=== PATIENT | male | born 1975 | race Caucasian/White ===

== ENCOUNTER → 2016-05-14 | Outpatient (CLI) | payer OTHER ==
--- NOTE | 2016-05-14 11:59 | EKG REPORT ---
SEVERITY:- ABNORMAL ECG - SINUS RHYTHM LEFT VENTRICULAR HYPERTROPHY BORDERLINE T ABNORMALITIES, INFERIOR LEADS : Confirmed by: Canelo Keane 14-May-2016 11:58:56
== END ==
LOC: OD 10:19
PROVIDERS: ATTEND Family Medicine
DX: R00.0 Tachycardia, unspecified (principal)
CPT/HCPCS: 93005; 93010

== ENCOUNTER → 2016-05-14 | Outpatient (CLI) | payer OTHER | LOC: OD 10:25 | PROVIDERS: ATTEND Family Medicine | DX: R00.0 Tachycardia, unspecified (principal) ==

== ENCOUNTER → 2017-03-13 | Outpatient (CLI) | payer OTHER ==
--- NOTE | 2017-03-13 08:37 | RADIOLOGY REPORT (SQ) ---
EXAM DESCRIPTION: KUB COMPLETED DATE/TIME: 03/13/2017 8:27 am REASON FOR STUDY: CALCULUS OF URETER N20.1 CALCULUS OF URETER COMPARISON: CT abdomen pelvis 11/18/2015 KUB 11/03/2015, 12/20/2015 NUMBER OF VIEWS: One view. TECHNIQUE: Supine radiographic image of the abdomen acquired. LIMITATIONS: None. FINDINGS: The patient has a cluster of radiopaque stones in the left lower pole kidney, the larges t of which is about 11 mm in diameter. Over the left upper sacrum, there are 2 tiny radiodensities which are probably tiny stone fragments, each about 2 mm in size. These are marked with a [place]. No right-sided urinary stones. There are calcified pelvic phleboliths, unchanged from CT 11/18/2015. BOWEL GAS PATTERN: Normal bowel gas pattern. No dilated loops. CALCIFICATIONS: As above SOFT TISSUES: No gross mass or suggestion of organomegaly. HARDWARE: None in the abdomen. BONES: No acute fracture. No worrisome bone lesions. OTHER: No other significant finding. IMPRESSION: Cluster of radiopaque stone fragments in the left lower pole kidney, the largest is 11 m m in diameter. Two tiny radiodensities over the left sacrum at the expected course of the ureter. These may be tiny stone fragments in the ureter. TECHNICAL DOCUMENTATION: JOB ID: [id number]- All Rights Reserved
== END ==
LOC: OD 08:14
PROVIDERS: ATTEND Urology
DX: N20.1 Calculus of ureter (principal)
CPT/HCPCS: 74000